=== PATIENT | male | born 1950 | race Caucasian/White ===

== ENCOUNTER → 2022-02-04 | Outpatient (CLI) | payer MEDICARE, OTHER ==
[2022-02-04 10:40] LABS: INR 0.9 (<1.2); Partial Thromboplastin Time 22.5 sec (22.0-30.0); Prothrombin Time 9.8 sec (9.0-12.0)
[2022-02-04 14:23] LABS: HCT 44.9 % (39.6-50.0); MCH 28.4 pg (27.0-32.0); MCHC 31.2 g/dL (32.0-37.0); MCV 91.1 fL (80.0-97.0); Mean Platelet Volume 9.7 fL (9.5-12.2); NRBC Per 100 WBC 0 /100 WBCS (0.0-0.0); Platelet Count 349 X 10*3/uL (140-440); RBC 4.93 X 10*6/uL (4.40-5.60); RDW 13.2 % (11.5-14.5); WBC 10.94 X 10*3/uL (4.50-10.00)
[2022-02-04 15:30] LABS: Appearance,Urine Clear (Clear); Bilirubin,Urine Negative (Negative); Blood,Urine Negative (Negative); Color,Urine Yellow (Yellow); Ketones,Urine Negative (Negative); Nitrite,Urine Negative (Negative); PH, Urine 6.5 (5.0-8.0); Specific Gravity,Urine 1.016 (1.001-1.030); Urobilinogen,Urine 0.2 (0.2,1.0)
[2022-02-04 15:54] LABS: African American GFR (CKD) 58.3 (60.0-200.0); Albumin/Globulin Ratio 1.33 (1.60-3.17); Anion Gap 9.3 mmol/L (10.00-18.00); BUN/Creat Ratio 8.35 Ratio (12.00-20.00); Blood Urea Nitrogen 11.6 mg/dL (9.0-27.0); Calcium 9.6 mg/dL (8.7-10.3); Carbon Dioxide 25.7 mmol/L (20.0-27.5); Non-African American GFR(CKD) 50.3 (60.0-200.0); Potassium 4.7 mmol/L (3.5-5.5); Total Bilirubin 0.3 mg/dL (0.30-1.20)
== END | disposition home or self-care (01) ==
LOC: LABPAT 09:19
PROVIDERS: ATTEND Orthopaedic Surgery Sports Medicine
DX: Z01.812 Encounter for preprocedural laboratory examination (principal)
CPT/HCPCS: 36415; 80053; 81003; 85027; 85610; 85730; 87070

== ENCOUNTER → 2022-02-04 | Outpatient (CLI) | payer MEDICARE, OTHER ==
--- NOTE | 2022-02-04 16:24 | CT ---
EXAMINATION TYPE: CT shoulder LT wo con DATE OF EXAM: 02/04/2022 COMPARISON: None. HISTORY: Left shoulder pain. Primary osteoarthritis. Advanced glenohumeral joint osteoarthritis. CT DLP: 784 mGycm Automated exposure control for dose reduction was used. FINDINGS: Mild to moderate narrowing of acromial clavicular joint with moderate superior capsular hypertrophy. Mild subchondral cystic change. Distal acromion morphology unremarkable. Advanced narrowing glenohumeral joint with [id number] formation, there is subchondral cystic change and sclerosis. There is loss of cervical shape to the humeral head with additional scattered subchon dral cysts superiorly and laterally. There is small spur from the inferior medial humeral head. Gleno id version is felt within normal limits. Muscle bulk is maintained. Visualized left lung is clear. Partial visualization of thoracic spinal stimulator on the localizer. IMPRESSION: As above.
== END | disposition home or self-care (01) ==
LOC: RADCTMAIN 09:25
PROVIDERS: ATTEND Orthopaedic Surgery Sports Medicine
DX: M19.012 Primary osteoarthritis, left shoulder (principal); M25.712 Osteophyte, left shoulder

== ENCOUNTER → 2022-04-07 | Outpatient (CLI) | payer MEDICARE, OTHER ==
[2022-04-07 15:02] LABS: Partial Thromboplastin Time 23.3 sec (22.0-30.0)
[2022-04-07 18:14] LABS: HCT 44.5 % (39.6-50.0); HGB 14.6 g/dL (13.0-17.0); MCH 28.6 pg (27.0-32.0); MCHC 32.8 g/dL (32.0-37.0); MCV 87.3 fL (80.0-97.0); Mean Platelet Volume 9.6 fL (9.5-12.2); NRBC Per 100 WBC 0 /100 WBCS (0.0-0.0); Platelet Count 336 X 10*3/uL (140-440); RDW 12.9 % (11.5-14.5); WBC 12.78 X 10*3/uL (4.50-10.00)
[2022-04-07 18:26] LABS: Anion Gap 11.4 mmol/L (10.00-18.00); BUN/Creat Ratio 9.5 Ratio (12.00-20.00); Blood Urea Nitrogen 13.3 mg/dL (9.0-27.0); Carbon Dioxide 26.6 mmol/L (20.0-27.5); Potassium 4.1 mmol/L (3.5-5.5)
[2022-04-07 18:27] LABS: African American GFR (CKD) 57.4 (60.0-200.0); Albumin 4.4 g/dL (3.8-4.9); Albumin/Globulin Ratio 1.47 (1.60-3.17); Calcium 9.2 mg/dL (8.7-10.3); Non-African American GFR(CKD) 49.5 (60.0-200.0); Total Bilirubin 0.3 mg/dL (0.30-1.20); Total Protein 7.4 g/dL (6.2-8.2)
[2022-04-07 20:07] LABS: Appearance,Urine Clear (Clear); Bilirubin,Urine Negative (Negative); Blood,Urine Negative (Negative); Color,Urine Yellow (Yellow); Ketones,Urine Negative (Negative); Nitrite,Urine Negative (Negative); Specific Gravity,Urine 1.018 (1.001-1.030); Urobilinogen,Urine 0.2 (0.2,1.0)
[2022-04-07 21:55] LABS: INR 0.9 (<1.2); Prothrombin Time 9.9 sec (9.0-12.0)
== END | disposition home or self-care (01) ==
LOC: LABPAT 12:46
PROVIDERS: ATTEND Orthopaedic Surgery Sports Medicine
DX: Z01.818 Encounter for other preprocedural examination (principal); I44.4 Left anterior fascicular block; M19.012 Primary osteoarthritis, left shoulder; R94.31 Abnormal electrocardiogram [ECG] [EKG]
CPT/HCPCS: 80053; 81003; 85027; 85610; 85730; 87070; 93005

== ENCOUNTER 2023-06-22 06:53 | Day surgery (SDC) | payer MEDICARE, OTHER ==
[~2023-06-22 06:53] MED LIST: ACETAMINOPHEN TAB 500 MG TAB PO PRN; GABAPENTIN 300 MG CAP PO PRN; MELOXICAM 7.5 MG TAB PO PRN; ONDANSETRON 4 MG/2 ML VIAL IVP PRN; TRANEXAMIC 1,000 MG/100ML-NACL 1,000 MG in SALINE 1 100ML.BAG IVPB PRN
[2023-06-22] MEDS ORDERED: DEXAMETHASONE SOD PHOSPHATE 4 MG/ML 1 ML VIAL IV ONE (07:32)
[2023-06-22] MEDS ORDERED: LIDOCAINE 1% (10MG/ML) FOR IV START INTRADERMA PRN (07:32)
[2023-06-22] MEDS ORDERED: HYDROmorphone 0.5 MG/0.5 ML SYRINGE IVP PRN ×4 (07:32→08:17)
[2023-06-22] MEDS ORDERED: ONDANSETRON 4 MG/2 ML VIAL IVP ONE (07:32)
[2023-06-22] MEDS ORDERED: MIDAZOLAM 2 MG/2 ML VIAL IV PRN (07:32)
[2023-06-22] MEDS ORDERED: ACETAMINOPHEN TAB 500 MG TAB ONE (07:46)
[2023-06-22 08:07] LABS: Glucose,Whole Blood 119 mg/dL (70-110)
[2023-06-22] MEDS: LACTATED RINGERS 1,000 ML IV SCH ×3 (08:14→16:52)
[2023-06-22] MEDS ORDERED: diphenhydrAMINE 25 MG CAP PO PRN (08:17)
[2023-06-22] MEDS ORDERED: ONDANSETRON 4 MG/2 ML VIAL IVP PRN (08:17)
[2023-06-22] MEDS ORDERED: SENNOSIDES-DOCUSATE SODIUM 1 EACH TAB PO PRN (08:17)
[2023-06-22] MEDS ORDERED: METOCLOPRAMIDE 5 MG/ML 2 ML VIAL IVP PRN (08:17)
[2023-06-22] MEDS ORDERED: HYDROcodone/APAP 7.5-325MG 1 EACH TAB PO PRN ×2 (08:21)
[2023-06-22 08:55] LABS: ALT 14 U/L (4-49); AST 25 U/L (17-59); African American GFR (CKD) 53 (>60 ml/min/1.73 sqM); Albumin 3.6 g/dL (3.5-5.0); Alkaline Phosphatase 84 U/L (38-126); Anion Gap 9 mmol/L; Blood Urea Nitrogen 21 mg/dL (9-20); Calcium 8.9 mg/dL (8.4-10.2); Carbon Dioxide 24 mmol/L (22-30); Chloride 106 mmol/L (98-107); Glucose 127 mg/dL (74-99); Non-African American GFR(CKD) 45 (>60 ml/min/1.73 sqM); Potassium 4.4 mmol/L (3.5-5.1); Sodium 139 mmol/L (137-145); Total Bilirubin 0.6 mg/dL (0.2-1.3); Total Protein 6.3 g/dL (6.3-8.2)
[2023-06-22] MEDS ORDERED: MIDAZOLAM 2 MG/2 ML VIAL IVP ONE (08:58)
[2023-06-22] MEDS ORDERED: fentaNYL (PF) 50 MCG/ML 2 ML AMP IVP ONE (08:58)
[2023-06-22] MEDS ORDERED: fentaNYL (PF) 50 MCG/ML 2 ML AMP ONE (09:35)
[2023-06-22] MEDS ORDERED: GLYCOPYRROLATE 0.2 MG/ML 2 ML VIAL ONE (09:35)
[2023-06-22] MEDS ORDERED: SUCCINYLCHOLINE CHLORIDE 200 MG/10 ML VIAL IV ONE (09:35)
[2023-06-22] MEDS ORDERED: PHENYLEPHRINE-0.9% NACL SYG 1,000 MCG/10 ML SYRINGE ONE (09:35)
[2023-06-22] MEDS ORDERED: PROPOFOL 10 MG/ML 20 ML VIAL IV ONE (09:35)
[2023-06-22] MEDS ORDERED: TRANEXAMIC 1,000 MG/100ML-NACL PREMIX BAG ONE (09:35)
[2023-06-22] MEDS ORDERED: HYDROmorphone (PF) 1 MG/ML ONE (09:35)
[2023-06-22] MEDS ORDERED: LIDOCAINE 1% INJ 10MG/ML (20 ML MDV) ONE (09:35)
[2023-06-22] MEDS ORDERED: NEOSTIGMINE 1 MG/ML 10 ML VIAL ONE (09:35)
[2023-06-22] MEDS ORDERED: ROCURONIUM 10 MG/ML (5 ML VIAL) IV ONE (09:35)
[2023-06-22] MEDS ORDERED: ePHEDrine 50 MG/ML 1 ML VIAL ONE (09:35)
[2023-06-22] MEDS ORDERED: ROPIVACAINE 5 MG/ML 30 ML VIAL ONE (09:35)
[2023-06-22] MEDS ORDERED: VANCOMYCIN 1,000 MG VIAL MISCELLANE ONE (10:42)
[2023-06-22] MEDS ORDERED: ceFAZolin 1,000 MG in SODIUM CHLORIDE 0.9% 1,000 ML IRRIGATION ONE (10:43)
--- NOTE | 2023-06-22 10:49 | P.ANPRN ---
Procedure Note - Anesthesia - Nerve Block Performed Left Interscalene Single Time Out Performed: Yes ([id number]) Date of Procedure: 06/22/23 Procedure Start Time: 08:58 Procedure Stop Time: 09:02 Indication: Acute Post-Operative Pain, Requested by Surgeon Specifically requested for management of pain by DrWale: Woodrow Cannon (\) Sedation Type: Sedate with meaningful contact maintained Preparation: Sterile Prep Position: Supine Catheter: None Needle Types: Pajunk Needle Gauge: 21 Ultrasound used to visualize needle placement: Yes Ultrasound used to observe medication spread: Yes Injectate: 0.5% Ropivacaine (see comment for volume) (30cc) Blood Aspirated: No Pain Paresthesia on Injection Noted: No Resistance on Injection: Normal Image Stored and Saved: Yes Events: Uneventful and Well Tolerated
[2023-06-22] MEDS ORDERED: LACTATED RINGERS 1,000 ML IV ONE (11:02)
--- NOTE | 2023-06-22 12:23 | XR ---
EXAMINATION TYPE: XR shoulder limited LT DATE OF EXAM: 06/22/2023 COMPARISON: NONE HISTORY: Postop TECHNIQUE: One view submitted FINDINGS: Postsurgical changes. There is a small amount soft tissue edema and air. IMPRESSION: Postoperative change.
[2023-06-22 12:27] LABS: Glucose,Whole Blood 160 mg/dL (70-110)
--- NOTE | 2023-06-22 15:01 | OP ---
OPERATIVE REPORT DATE OF SERVICE : 06/22/2023 PREOPERATIVE DIAGNOSIS: Left shoulder failed total shoulder arthroplasty. POSTOPERATIVE DIAGNOSIS: Left shoulder failed total shoulder arthroplasty. PROCEDURE PERFORMED: Left shoulder revision total shoulder arthroplasty to a reverse total shoulder arthroplasty. ANESTHESIA: General endotracheal. ESTIMATED BLOOD LOSS: 300 mL. DRAINS: None. COMPLICATIONS: None apparent. DISPOSITION: Postanesthesia care unit. INDICATIONS FOR PROCEDURE: Mr. Tapia is a very pleasant 73-year-old male, who underwent a left anatomic total shoulder arthroplasty by myself last year. He had a subsequent accident and sustained a tearing of the rotator cuff. He has had some instability in the shoulder since then. At this point time, he would like to proceed with revision total shoulder arthroplasty to a reverse total shoulder arthroplasty. The risks of procedure were discussed with him in detail. These risks include, but are not limited to risk of infection, nerve damage, bleeding, pain, instability in the shoulder, loosening of the implants, and deep infection. There is also a very small risk of deep vein thrombosis, which could lead to fatal pulmonary embolism. The patient understood the risks. All of his questions with regard to the procedure were answered to his satisfaction. An appropriate informed consent was obtained. DESCRIPTION OF PROCEDURE: The patient was identified in the preoperative holding area. Surgical site was marked by both the patient and myself. He was given 2 g of Ancef IV for prophylactic purposes. He was then transported to the operative suite. He was placed supine on the operating table. A general anesthetic was then administered and dosed per the Anesthesia Department without apparent complication. The patient was then placed into the beach chair position and well-padded in preparation for surgery. Great care was taken to ensure that the cervical spine was in neutral alignment, well-padded, and maintained that way throughout the operative procedure. Great care was also taken to ensure that his legs were appropriately padded as well. A standard surgical pause was undertaken to ensure that we were operating the correct site and that appropriate preoperative antibiotics had been given. All staff in the room were in agreement, and we proceeded. The previous incision was identified. We then opened the previous incision with a 10- blade scalpel. Dissection was carried down sharply to the deltoid fascia. The deltopectoral interval was then identified at the level of the clavicle. A small band retractor was then placed onto the proximal deltoid. I then released the deltoid fascia on the lateral aspect of the cephalic vein. The cephalic vein was left in its bed medially. The cephalic vein was protected throughout the entire case. I then identified the clavipectoral fascia. This was incised proximally to the level of the coracoacromial ligament. The coracoacromial ligament was continued to be left intact. I then used my finger to spread the interval between the conjoint tendon and the anterior capsule. I felt for the axillary nerve, which was readily palpable. I then cleared the subacromial and subdeltoid spaces of bursal and scar tissue. I then utilized a Patterson retractor to hold the deltoid and expose the humeral head. I then released the anterior capsule. Again, the subscapularis was completely failed, and he had tearing of the supraspinatus as well. The capsule release extended distally in a lazy-S fashion approximately 1 cm medial to the bicipital groove. I then continued to release the capsule inferomedially in a vertical fashion to approximately the 6 o'clock position. Great care was taken to ensure that the capsule was always visualized as it was released as to avoid injuring the axillary nerve. I then brought a Talamantes hogshead mat inspector with the arm externally rotated and abducted. I continued to release the capsule inferomedially to approximately the 4 o'clock position. I then removed the humeral head. This was dissociated from the Monaco taper utilizing the instrument and was removed. I then utilized a Bhattman retractor and placed onto the posterior glenoid rim. The arm was then placed in approximately 80 degrees of abduction and in slight flexion on the Talamantes stand. I then proceeded to remove any hypertrophic tissue around the glenoid component. I then proceeded with removing of the glenoid component. We utilized a small microsagittal saw to remove the superior, anterior-inferior, and posterior-inferior aspects of the polyethylene. This was done without any incident. I then utilized a Serina to unscrew the central aspect of the glenoid component from the Regenerex peg. This was also done without incident. I then threaded the pin into the Regenerex peg. I then utilized the trephination reamer. This was then taken down until it was fully seated. I then was able to remove the Regenerex peg. The Regenerex peg had excellent bone ingrowth throughout the peg. In total, the glenoid component was removed without any damage to the subchondral bone. It was a very clean removal of the glenoid component. Any remaining bone cement was removed with a rongeur at this point. I then placed a central guide pin in the center of the glenoid. I then utilized the mini baseplate reamer and just barely touched the glenoid. I then proceeded with placement of a central screw. We then had the telephone claims representative open a mini baseplate. This was then impacted onto the actual glenoid. I then measured for the central screw. It measured 30 mm. A 30 mm central screw was then placed. This screw had excellent purchase in bone. I was able to rotate the scapula through the screwdriver when the screw was fully seated. I then proceeded with placing the peripheral locking screws. The inferior screw was 25 mm, and the anterior and posterior screws were 15 mm each. I did not fill the superior screw hole. I then had the telephone claims representative open a 36 mm glenosphere. This was just very mildly offset inferiorly. The Monaco taper was dried, and then the actual glenosphere was then impacted onto the real baseplate. Prior to impacting the glenosphere, we did check to ensure that the central screw was fully seated, and it was. I then proceeded with trialing with the real glenosphere. I started with a standard poly and standard tray. It was very tight. I was unable to reduce the left shoulder. I made a decision at this point to proceed with removing the stem and taking a little more proximal bone. I then utilized a rongeur to whittle away around the proximal aspect of the stem. I then used a small microsagittal saw again to go down just the size of the stem. I was able to remove the stem with a slap hammer. No damage was done to the proximal humerus with removal of the stem. I then further reamed with a 12 reamer. It was a tight ream. I did not decide to upsize the stem. I then utilized a sagittal saw to take down approximately 2 mm of the proximal humerus. Again, this was done in approximately 30 degrees of retrotorsion. I then utilized the broach. I utilized a size 12 broach. The canal was then broached, and the stem was seated. I then placed a standard polyethylene and a standard tray onto the broach stem. I was then able to reduce the shoulder. It was a slightly difficult reduction. It was very stable throughout a full range of motion. There was not any undue tension on the conjoint tendon. I had made a decision to proceed with the standard tray and standard poly. The shoulder was then redislocated. The broach was removed. I had the telephone claims representative open a Biomet size 12 mini stem, a standard tray, and a standard polyethylene. The wound was again thoroughly irrigated with sterile saline solution with antibiotic added via pulsed lavage. I then utilized Irrisept antiseptic solution at this point. I then inserted the real stem in approximately 30 degrees of retrotorsion. The stem had excellent press-fit. I then dried Monaco taper and placed the standard tray and standard poly. The Monaco taper was tightened. Again, the shoulder was reduced. Again, it was a fairly difficult reduction. It was very stable. There was no impingement noted when it was taken through range of motion. I then felt for the axillary nerve, which was readily palpable and uninjured. At this point, we proceeded with closure. The wound was thoroughly irrigated again with sterile saline solution with antibiotic added via pulsed lavage. The remaining Irrisept antiseptic solution was utilized. Approximately 500 mg of vancomycin powder was then placed deep. The deltopectoral interval was closed with 0 Vicryl interrupted suture. Again, subcutaneous tissue was irrigated. The remaining 500 mg of vancomycin powder was placed subcutaneously. The subcutaneous tissue was closed with 2-0 Vicryl interrupted suture, and the skin was closed with a running 3-0 Quill suture. Dermabond was applied to the incision. Sterile dressing was applied, and the patient's left upper extremity was placed in a standard sling. All sponge and needle counts were deemed correct prior to closure. The patient tolerated the procedure without apparent complication. He was transferred to recovery room in stable condition. MMODL / IJN: [id number] /
[2023-06-22 16:32] LABS: Glucose,Whole Blood 208 mg/dL (70-110)
[2023-06-22 20:28] LABS: Glucose,Whole Blood 258 mg/dL (70-110)
[2023-06-22 20:47] VITALS: RESP 18
[2023-06-22] MEDS ORDERED: INSULIN DETEMIR (LEVEMIR) 100 UNIT/ML SYR SQ SCH (21:00)
[2023-06-22] MEDS ORDERED: ATORVASTATIN 10 MG TAB PO SCH (21:00)
[2023-06-22] MEDS ORDERED: PANTOPRAZOLE 40 MG TABLET PO SCH (21:00)
[2023-06-22] MEDS ORDERED: AMITRIPTYLINE HCL 50 MG TAB PO SCH (21:00)
[2023-06-22] MEDS ORDERED: LORazepam 1 MG TAB PO SCH (21:00)
[2023-06-22] MEDS ORDERED: PREGABALIN 50 MG CAP PO SCH (21:00)
[2023-06-22] MEDS: METOPROLOL TARTRATE 12.5 MG TAB PO SCH (21:37)
[2023-06-23] MEDS: LACTATED RINGERS 1,000 ML IV SCH ×2 (04:59→09:00)
[2023-06-23 05:29] LABS: Glucose,Whole Blood 156 mg/dL (70-110)
[2023-06-23] MEDS ORDERED: INSULIN DETEMIR (LEVEMIR) 100 UNIT/ML SYR SQ SCH (07:00)
[2023-06-23 07:26] VITALS: BP 128/74; PULSE 72; TEMP 98.3
[2023-06-23] MEDS: METOPROLOL TARTRATE 12.5 MG TAB PO SCH (09:00)
[2023-06-23 11:07] LABS: Basophils # (A) 0.07 X 10*3/uL (0.00-0.10); Basophils % (A) 0.4 %; Eosinophils # (A) 0.05 X 10*3/uL (0.04-0.35); Eosinophils % (A) 0.3 %; HCT 33.6 % (39.6-50.0); HGB 11.1 d/dL (13.0-17.0); Lymphocytes # (A) 2.68 X 10*3/uL (0.90-5.00); Lymphocytes % (A) 16.5 %; MCV 90.8 FL (80.0-97.0); Mean Platelet Volume 9.6 FL (9.5-12.2); Monocytes # (A) 1.38 X 10*3/uL (0.20-1.00); Monocytes % (A) 8.5 %; NRBC Per 100 WBC 0 X 10*3/uL (0.00-0.01); Neutrophils # (A) 11.98 X 10*3/uL (1.80-7.70); Neutrophils % (A) 73.7 %; Platelet Count 318 X 10*3/uL (140-440); RDW 13.2 % (11.5-14.5); WBC 16.25 X 10*3/uL (4.50-10.00)
[2023-06-23 11:31] LABS: Glucose,Whole Blood 166 mg/dL (70-110)
--- NOTE | 2023-06-23 12:07 | P.DS ---
Providers Expected date of discharge: 06/23/23 Attending physician: Woodrow Cannon Consults: 06/22/23 08:17 Consult Physician Routine Consulting Provider: Jenise Irwin Consult Reason/Comments: post op medical management Do you want consulting provider notified?: Yes Primary care physician: Angel Vides - Discharge Diagnosis(es) (1) History of total shoulder replacement Patient was admitted to the OR on 06/22/23 to undergo a revision left reverse total shoulder arthroplasty. He had failed conservative measures as an outpatient and desired to proceed with elective surgery after given informed consent. He underwent the above procedure which he tolerated well without complication. Postoperative hospital course has remained without complication. On day of discharge he is afebrile, vital signs stable, labs within acceptable ranges, tolerating by mouth meds and diet, voiding without difficulty, positive flatus, denies abdominal pain or calf pain, pain is controlled on oral pain medication and has no new complaints. Wound is benign, neurovascular status is intact, calf is soft and nontender, abdomen soft and nontender. Review of systems is negative for numbness, tingling, fever, chills, chest pain, shortness of breath, nausea, vomiting, dizziness, headaches, slurred speech or other. Current Visit: Yes Status: Acute Priority: Medium (2) Osteoarthritis of left shoulder Current Visit: No Status: Acute Priority: Medium Procedures: Revision Left Reverse Total Shoulder arthroplasty Patient Condition at Discharge: Good Plan - Discharge Summary Discharge Rx Participant: No New Discharge Prescriptions: New Doxycycline Hyclate 100 mg PO BID #10 tab Ondansetron [Zofran] 4 mg PO Q8HR PRN #21 tab PRN Reason: Nausea Docusate [Colace] 100 mg PO BID #60 capsule No Action Multivitamins, Thera [Multivitamin (formulary)] 1 tab PO DAILY Pregabalin [Lyrica] 50 mg PO HS Vit C/E/Zn/Coppr/Lutein/Zeaxan [Preservision Areds 2 Chew Tab] 1 each PO DAILY Metoprolol Tartrate [Lopressor] 12.5 mg PO BID calcitrioL [Calcitriol] 0.25 mcg PO Q3D Atorvastatin [Lipitor] 10 mg PO HS Omeprazole [PriLOSEC] 40 mg PO HS Amitriptyline HCl [Elavil] 50 mg PO HS traMADol HCL [traMADol HCL ER] 200 mg PO HS traMADol HCL 50 mg PO DAILY PRN PRN Reason: Pain Insulin Detemir (Levemir) [Levemir] 90 unit SQ DAILY LORazepam [Ativan] 1 mg PO HS Insulin Detemir [Levemir Flexpen] 60 units SQ HS Discharge Medication List Amitriptyline HCl [Elavil] 50 mg PO HS 02/21/22 [History] Atorvastatin [Lipitor] 10 mg PO HS 02/21/22 [History] Insulin Detemir (Levemir) [Levemir] 90 unit SQ DAILY 02/21/22 [History] Metoprolol Tartrate [Lopressor] 12.5 mg PO BID 02/21/22 [History] Multivitamins, Thera [Multivitamin (formulary)] 1 tab PO DAILY 02/21/22 [History] Omeprazole [PriLOSEC] 40 mg PO HS 02/21/22 [History] Pregabalin [Lyrica] 50 mg PO HS 02/21/22 [History] Vit C/E/Zn/Coppr/Lutein/Zeaxan [Preservision Areds 2 Chew Tab] 1 each PO DAILY 02/21/22 [History] calcitrioL [Calcitriol] 0.25 mcg PO Q3D 02/21/22 [History] traMADol HCL 50 mg PO DAILY PRN 02/21/22 [History] traMADol HCL [traMADol HCL ER] 200 mg PO HS 02/21/22 [History] LORazepam [Ativan] 1 mg PO HS 04/14/22 [History] Insulin Detemir [Levemir Flexpen] 60 units SQ HS 06/21/23 [History] Docusate [Colace] 100 mg PO BID #60 capsule 06/22/23 [Rx] Doxycycline Hyclate 100 mg PO BID #10 tab 06/22/23 [Rx] Ondansetron [Zofran] 4 mg PO Q8HR PRN #21 tab 06/22/23 [Rx] Follow up Appointment(s)/Referral(s): Woodrow Cannon MD [STAFF PHYSICIAN] - 10 Days Activity/Diet/Wound Care/Special Instructions: maintain bandage and sling, keep clean and dry nonweightbearing left upper extremity take meds as directed f/u in office may shower in 3 days if no bleeding Discharge Disposition: HOME SELF-CARE
--- NOTE | 2023-06-23 16:04 | P.CONS ---
History of Present Illness - Reason for Consult Consult date: 06/23/23 Medical management status post left reverse total shoulder arthroplasty - History of Present Illness This is a very pleasant 73-year-old male who was admitted under orthopedic services and underwent revision of the left reverse total shoulder arthroplasty with significant history of osteoarthritis of the left shoulder with failed conservative management in the outpatient setting. Patient did undergo surgical clearance with primary care provider as well as cardiology clearance with Dr. Wilson. Patient reports he follows with Dr. Angel Vides in the outpatient setting with a past medical history of right kidney cancer with one solitary kidney, diabetes mellitus, GERD, hyperlipidemia, hypertension, obesity. Patient denies ever smoking rarely drinks any alcohol and denies any other illicit drugs. On exam patient surgical site appears dry and intact with no significant erythema and minimal swelling noted. Patient does have a sling and reports pain is currently managed. Patient home medications reviewed and resumed and monitoring Accu-Cheks and blood sugars are more controlled today. Patient did have a mildly elevated white count reactive this patient does not appear infectious at all. Hemoglobin is stable at 11.1. Vital signs are stable. Encourage the patient to use incentive spirometer at least 10 times every hour while awake. Patient reports has been up and using the bathroom with no dif ficulties is passing gas with no bowel movement as of yet and is tolerating diet with no reported nausea or vomiting. Patient is anticipating going home today. Review Of Systems: Constitutional: No fever, no chills, no night sweats. No weight change. No weakness, fatigue or lethargy. No daytime sleepiness. EENT: No headache. No blurred vision or double vision, no loss of vision. No loss of Hearing, no ringing in the ears, no dizziness. No nasal drainage or congestion. No epistaxis. No sore throat. Lungs: No shortness of breath, cough, no sputum production. No wheezing. Cardiovascular: No chest pain, no lower extremity edema. No palpitations. No paroxysmal nocturnal dyspnea. No orthopnea. No lightheadedness or dizziness. No syncopal episodes. Abdominal: No abdominal pain. No nausea, vomiting. No diarrhea. No constipation. No bloody or tarry stools.. No loss of appetite. Genitourinary: No dysuria, increased frequency, urgency. No urinary retention. Musculoskeletal: No myalgias. No muscle weakness, no gait dysfunction, no frequent falls. No back pain. No neck pain. Reports some mild left shoulder discomfort although currently managed Integumentary: No wounds, no lesions. No rash or pruritus. No unusual bruising. No change in hair or nails. Neurologic: No aphasia. No facial droop. No change in mentation. No head injury. No headache. No paralysis. No paresthesia. Psychiatric: No depression. No anxiety. No mood swings. Endocrine: No abnormal blood sugars. No weight change. No excessive sweating or thirst. No cold intolerance. PHYSICAL EXAMINATION: GENERAL: The patient is alert and oriented x4, Well developed, well nourished. Obese HEENT: Pupils are round and equally reacting to light. EOMI. no scleral icterus. No conjunctival pallor. Normocephalic, atraumatic. No pharyngeal erythema. No thyromegaly. CARDIOVASCULAR: S1 and S2 muffled PULMONARY: Breath sounds clear to auscultation bilaterally with no wheezing or rhonchi noted. ABDOMEN: soft. Nontender on exam. obese. non-distended, normoactive bowel sounds. No palpable organomegaly. MUSCULOSKELETAL: No joint swelling or deformity. EXTREMITIES: No cyanosis, clubbing, or pedal edema. Left shoulder dressing is dry and intact and sling is noted. Positive cap refill of less than 3 seconds of the left upper extremity NEUROLOGICAL: Gross neurological examination did not reveal any focal deficits. SKIN: No rashes. Assessment: Status post left reverse total shoulder arthroplasty Diabetes mellitus type 2, insulin-dependent History of hypertension Hyperlipidemia History of right kidney cancer with removal Obesity with a BMI of 36.7 GI prophylaxis DVT prophylaxis Full code Plan: Patient admitted under orthopedic services with failure of conservative measures with continued left shoulder pain underwent left reverse total shoulder arthroplasty postop day 1. Patient with the sling and will continue in surgical dressing is dry and intact Continue to monitor Accu-Cheks before meals and at bedtime Home medications reviewed and resumed as appropriate Patient reports pain is currently controlled on medication regimen per orthopedics Incentive spirometer encouraged and instructed the patient use at least 10 times every hour while awake Patient reports did undergo surgical clearance at his primary care provider's office as well as cardiology Patient reports would like to be discharged today and awaiting follow-up orthopedic re-eval Patient has been eating and drinking with no reported nausea or vomiting, voiding with no difficulties and has passed gas with no bowel movement as of yet Encouraged increase activity as tolerated Patient is medically stable for discharge today once cleared by orthopedics Thank you kindly for this consultation. We will continue to follow with orthopedics during hospitalization. The impression and plan of care has been dictated by Jessica Carcamo, nurse practitioner as directed. Dr. Renetta MD I have performed a history and examination and MDM of this patient, discussed the same with the dictator, and agree with the dictator's assessment and plan as written ,documented as a scribe. Based on total visit time, I have performed more than 50% of the visit. Any additional findings or plans will be noted. Past Medical History Past Medical History: Cancer, Diabetes Mellitus, GERD/Reflux, Hyperlipidemia, Hypertension Additional Past Medical History / Comment(s): kidney cancer History of Any Multi-Drug Resistant Organisms: None Reported Past Surgical History: Appendectomy, Back Surgery, Cholecystectomy, Hernia Repair, Orthopedic Surgery Additional Past Surgical History / Comment(s): back surgery x3.rt kidney removed, fx neck fusion, sleep apena surgery, lft [place] Past Anesthesia/Blood Transfusion Reactions: No Reported Reaction Past Psychological History: No Psychological Hx Reported Smoking Status: Never smoker Past Alcohol Use History: Rare Past Drug Use History: None Reported - Past Family History Brother(s) Family Medical History: CVA/TIA Medications and Allergies Home Medications Medication Instructions Recorded Confirmed Type Amitriptyline HCl [Elavil] 50 mg PO HS 02/21/22 06/22/23 History Atorvastatin [Lipitor] 10 mg PO HS 02/21/22 06/22/23 History Insulin Detemir (Levemir) [Levemir] 90 unit SQ DAILY 02/21/22 06/22/23 History Metoprolol Tartrate [Lopressor] 12.5 mg PO BID 02/21/22 06/22/23 History Multivitamins, Thera [Multivitamin 1 tab PO DAILY 02/21/22 06/21/23 History (formulary)] Omeprazole [PriLOSEC] 40 mg PO HS 02/21/22 06/22/23 History Pregabalin [Lyrica] 50 mg PO HS 02/21/22 06/22/23 History Vit C/E/Zn/Coppr/Lutein/Zeaxan 1 each PO DAILY 02/21/22 06/22/23 History [Preservision Areds 2 Chew Tab] calcitrioL [Calcitriol] 0.25 mcg PO Q3D 02/21/22 06/22/23 History traMADol HCL 50 mg PO DAILY PRN 02/21/22 06/22/23 History traMADol HCL [traMADol HCL ER] 200 mg PO HS 02/21/22 06/22/23 History LORazepam [Ativan] 1 mg PO HS 04/14/22 06/22/23 History Insulin Detemir [Levemir Flexpen] 60 units SQ HS 06/21/23 06/22/23 History Docusate [Colace] 100 mg PO BID #60 capsule 06/22/23 Rx Doxycycline Hyclate 100 mg PO BID #10 tab 06/22/23 Rx Ondansetron [Zofran] 4 mg PO Q8HR PRN #21 tab 06/22/23 Rx HYDROcodone/APAP 7.5-325MG [[place] 1 - 2 each PO Q6HR PRN #42 tab 06/23/23 Rx 7.5-325] Allergies Allergy/AdvReac Type Severity Reaction Status Date / Time amoxicillin [From Augmentin] Allergy Rash/Hives Verified 06/22/23 07:37 clavulanic acid Allergy Rash/Hives Verified 06/22/23 07:37 [From Augmentin] Penicillins Allergy Anaphylaxis Verified 06/22/23 07:37 Physical Exam Vitals: Vital Signs Temp Pulse Pulse Resp BP Pulse Ox 06/23/23 06:53 98.3 F 72 18 128/74 97 06/23/23 01:20 98.4 F 81 18 121/67 96 06/22/23 19:20 98.0 F 89 18 115/71 96 Intake and Output 06/23/23 06/23/23 06/23/23 06:59 14:59 22:59 Other: # Voids 1 # Bowel Movements 1 Results CBC & Chem 7: 06/23/23 06:24 06/22/23 08:24 Labs: Abnormal Lab Results - Last 24 Hours (Table) 06/22/23 06/22/23 06/23/23 Range/Units 16:29 20:27 05:27 WBC (4.50-10.00) X 10*3/uL RBC (4.40-5.60) X 10*6/uL Hgb (13.0-17.0) d/dL Hct (39.6-50.0) % Neutrophils # (1.80-7.70) X 10*3/uL Monocytes # (0.20-1.00) X 10*3/uL POC Glucose (mg/dL) 208 H 258 H 156 H (70-110) mg/dL 06/23/23 06/23/23 Range/Units 06:24 11:30 WBC 16.25 H (4.50-10.00) X 10*3/uL RBC 3.70 L (4.40-5.60) X 10*6/uL Hgb 11.1 L (13.0-17.0) d/dL Hct 33.6 L (39.6-50.0) % Neutrophils # 11.98 H (1.80-7.70) X 10*3/uL Monocytes # 1.38 H (0.20-1.00) X 10*3/uL POC Glucose (mg/dL) 166 H (70-110) mg/dL
== END 2023-06-23 13:51 | disposition home or self-care (01) ==
LOC: OR 06:53 → 4SSUR 11:47 → OR 06-23 13:51
PROVIDERS: ATTEND Orthopaedic Surgery Sports Medicine
DX: T84.098A Other mechanical complication of other internal joint prosthesis, initial encounter (principal); M19.012 Primary osteoarthritis, left shoulder; Z96.612 Presence of left artificial shoulder joint; Y79.2 Prosthetic and other implants, materials and accessory orthopedic devices associated with adverse incidents; Z68.36 Body mass index [BMI] 36.0-36.9, adult; Z85.528 Personal history of other malignant neoplasm of kidney; E11.9 Type 2 diabetes mellitus without complications; E66.9 Obesity, unspecified; E78.5 Hyperlipidemia, unspecified; I10 Essential (primary) hypertension; K21.9 Gastro-esophageal reflux disease without esophagitis; Z90.49 Acquired absence of other specified parts of digestive tract; Z79.899 Other long term (current) drug therapy; Z88.1 Allergy status to other antibiotic agents; Z88.0 Allergy status to penicillin
CPT/HCPCS: 23474; 64415; 80053; 85025; 73020; C1776; J2250; J3370; J0330; J1100; J2710; J0690 ×3; J2405; J2001; J3010; J1170; J2795; J2704; J2371

== ENCOUNTER 2023-11-21 07:51 | Day surgery (SDC) | payer MEDICARE, OTHER ==
[2023-11-20 10:00] VITALS: BMI 38.0
[2023-11-21] MEDS: LACTATED RINGERS 1,000 ML IV SCH (08:23)
[2023-11-21 08:30] LABS: Glucose,Whole Blood 88 mg/dL (70-110)
[2023-11-21] MEDS ORDERED: PROPOFOL 10 MG/ML 20 ML VIAL IV ONE (08:54)
[2023-11-21 09:01] VITALS: RESP 16; TEMP 96.9
--- NOTE | 2023-11-21 09:27 | P.PCN ---
Date of Procedure: 11/21/23 Procedure(s) Performed: BRIEF HISTORY: Patient is a 73-year-old pleasant white male scheduled for an elective colonoscopy as a part of screening for colon cancer. PROCEDURE PERFORMED: Colonoscopy with snare polypectomy. PREOPERATIVE DIAGNOSIS: Screening for colon cancer. IV sedation per Anesthesia. PROCEDURE: After informed consent was obtained, the patient, was brought into the endoscopy unit. IV sedation was administered by Anesthesia under continuous monitoring. Digital rectal examination was normal. Initially the Olympus CF-160 flexible video colonoscope was then inserted in the rectum, gradually advanced into the cecum without any difficulty. Careful examination was performed as the scope was gradually being withdrawn. Ileocecal valve and the appendiceal orifice were visualized and appeared normal. Prep was poor and several areas of the colon especially the cecum.. Mucosa of the cecum, that was visualized appeared normal. Ascending colon there were 3 polyps measuring between 5-7 mm in size removed by snare polypectomy. In the transverse colon there were 3 polyps measuring between 3-6 mm in size removed by snare polypectomy. Rest of the ascending colon, transverse colon, descending colon, sigmoid colon, and rectum appeared normal. In the mid rectum there was a 1.5 cm polyp removed by snare polypectomy. Retroflexion was performed in the rectum and no lesions were seen. The patient tolerated the procedure well. IMPRESSION: 5 mm, 6 mm and 7 mm ascending colon polyp status post snare polypectomy 3 mm, 5 mm and 6 mm transverse colon polyp status post polypectomy 1.5 cm mid rectal polyp status post polypectomy Poor prep in several areas of the colon RECOMMENDATIONS: Findings of this examination were discussed with the patient as well as his family. He was advised to follow with the biopsy results. If the biopsy results adenoma he can have a repeat colonoscopy in 3 years..
[2023-11-21 09:42] LABS: Glucose,Whole Blood 85 mg/dL (70-110)
[2023-11-21 10:11] VITALS: BP 149/72; PULSE 61
== END 2023-11-21 10:00 | disposition home or self-care (01) ==
LOC: ORWHC2ENDO 07:51
PROVIDERS: ATTEND Internal Medicine Gastroenterology
DX: Z12.11 Encounter for screening for malignant neoplasm of colon (principal); D12.3 Benign neoplasm of transverse colon; D12.8 Benign neoplasm of rectum; D12.2 Benign neoplasm of ascending colon; K63.5 Polyp of colon; I10 Essential (primary) hypertension; E78.5 Hyperlipidemia, unspecified; E11.9 Type 2 diabetes mellitus without complications; Z68.38 Body mass index [BMI] 38.0-38.9, adult; E66.9 Obesity, unspecified; K21.9 Gastro-esophageal reflux disease without esophagitis; Z88.0 Allergy status to penicillin; Z79.899 Other long term (current) drug therapy
CPT/HCPCS: 88305; 45385; J2704